=== PATIENT | male | born 1990 | race Caucasian/White ===

== ENCOUNTER 2020-05-07 15:18 | Emergency (ER) | payer MEDICAID ==
[~2020-05-07] VITALS: Ht 172.7 cm; Wt 95.3 kg
[2020-05-07 16:21] VITALS: Ht 172.7 cm; Wt 95.3 kg
[2020-05-07 19:01] VITALS: BP 149/86
== END 2020-05-07 17:30 | disposition home or self-care (01) ==
LOC: ED 15:18
DX: K08.89 Other specified disorders of teeth and supporting structures (principal)